=== PATIENT | female | born 1950 | race Caucasian/White ===

== ENCOUNTER 2017-05-11 23:31 | Emergency (ER) | payer MEDICARE, BC ==
[~2017-05-11 23:31] MED LIST: ALLE60TA PO; CALC1TAB12 PO; CHOL100025 CHEW; ESTR1.5T2 PO; GUAI600T11 PO; IRBE150T49 PO; LANTUS2P SQ; LEVO.15 PO; LIBRAX PO; METF-382 PO; MONT10TA2 PO; MUPI2CRE3 TOP; NOVOINJ6 SQ; NOVOLOGSS SQ; PROM25TA5 PO; SOMA350T PO; TRAM50TA PO; TYLENOL ARTHRITIS PO; VITA400T14 PO; ZOFR4TAB3 SL
[2017-05-11 23:33] VITALS: BP 173/74; PULSE 86; RESP 16; TEMP 98.1; O2SAT 97
[2017-05-12] MEDS ORDERED: SODIUM CHLORIDE 0.9% FLUSH 10 ML FLUSH IVF PRN
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
[2017-05-12] MEDS ORDERED: OXYMETAZOLINE HCL 0.05% 15 ML NASAL SPRAY NASAL ONE (00:15)
[2017-05-12 00:55] LABS: AUTOMATED NEUTROPHIL # 1.9 TH/MM3 (1.8-7.7); BASOPHIL % 0.6 % (0.0-2.0); EOSINOPHIL # 0.1 TH/MM3 (0-0.4); EOSINOPHIL % 2.2 % (0.0-4.0); HEMATOCRIT 39.3 % (35.0-46.0); LYMPH % 33.1 % (9.0-44.0); LYMPHOCYTE # 1.2 TH/MM3 (1.0-4.8); MEAN CELL VOLUME 93.1 FL (80.0-100.0); MEAN CORPUSCULAR HEMOGLOBIN 31.7 PG (27.0-34.0); MONO % 11.4 % (0.0-8.0); NEUT % 52.7 % (16.0-70.0); PLATELET COUNT 66 TH/MM3 (150-450); RED BLOOD COUNT 4.22 MIL/MM3 (4.00-5.30); RED CELL DISTRIBUTION WIDTH 14.1 % (11.6-17.2); WHITE BLOOD COUNT 3.7 TH/MM3 (4.0-11.0)
[2017-05-12 00:58] LABS: HEMO FLAGS AUTO DIFF
[2017-05-12 01:02] LABS: APTT (PATIENT) 27.3 SEC (24.3-30.1); PROTHROMBIN TIME - PATIENT 11.5 SEC (9.8-11.6)
[2017-05-12 01:26] LABS: PLATELET ESTIMATE SMEAR LOW (NORMAL); PLATELET MORPHOLOGY NORMAL (NORMAL); SCAN/DIFF AUTO DIFF CONFIRMED
[2017-05-12 01:35] LABS: BICARBONATE 26.8 MEQ/L (21.0-32.0)
== END 2017-05-12 01:59 | disposition home or self-care (01) ==
LOC: NEPE 23:31
DX: R04.0 Epistaxis (principal); D69.6 Thrombocytopenia, unspecified
CPT/HCPCS: 30901; 80048; 85025; 85610; 85730